=== PATIENT | female | born 1980 | race Caucasian/White ===

== ENCOUNTER 2016-12-06 15:08 | Emergency (ER) | payer BC, MEDICAID ==
[~2016-12-06 15:08] MED LIST: Amoxicillin/Clavulanate K 875-125 MG Tab ONE
--- NOTE | 2016-12-06 17:57 | EDM.PDOC ---
ED HPI GENERAL MEDICAL PROBLEM - General Chief Complaint: General Stated Complaint: cat bite Time Seen by Provider: 12/06/16 15:10 Source of Information: Reports: Patient History Limitations: Reports: No Limitations - History of Present Illness INITIAL COMMENTS - FREE TEXT/NARRATIVE: This is a 36yo F who was bitten by her cat and has noticed inflammation at the site of the left thumb base with swelling. Denies fever or chills. Duration: Day(s): Location: Reports: Upper Extremity, Left Severity: Mild Improves with: Reports: None Worsens with: Reports: None ED ROS GENERAL - Review of Systems Review Of Systems: ROS reveals no pertinent complaints other than HPI. ED EXAM, GENERAL - Physical Exam Exam: See Below Exam Limited By: No Limitations General Appearance: Alert, WD/WN, No Apparent Distress Ears: Normal External Exam Respiratory/Chest: No Respiratory Distress Cardiovascular: Normal Peripheral Pulses Extremities: Redness Neurological: Alert, Oriented Psychiatric: Normal Affect, Normal Mood Skin Exam: Increased Warmth Course - Vital Signs Last Recorded V/S: Last Vital Signs Temp 36.8 C 12/06/16 16:40 Pulse Resp BP Pulse Ox Departure - Departure Time of Disposition: 15:20 Disposition: Home, Self-Care 01 Condition: Good Clinical Impression: Cat bite of hand Qualifiers: Encounter type: initial encounter Laterality: left Qualified Code(s): S61.452A - Open bite of left hand, initial encounter; W55.01XA - Bitten by cat, initial encounter; W55.01XA - Bitten by cat, initial encounter - Discharge Information Instructions: Amoxicillin; Clavulanic Acid tablets, Animal Bite Forms: ED Department Discharge Additional Instructions: Take ibproufen 4 tablets (800mg) every 8 hours as needed for pain. Take tylenol 2 tablets (650mg) every 4 hours as needed for pain. Return to clinic in 2 days if symptoms have not begun to resolve. Elevate hand and rest for 12 hours. Avoid lifting with left hand. Apply ice to affected area for 10 to 15 minutes four times a day as needed for pain.
== END 2016-12-06 15:20 | disposition home or self-care (01) ==
LOC: LB.ED 15:08
DX: S61.452A Open bite of left hand, initial encounter (principal); W55.01XA Bitten by cat, initial encounter
CPT/HCPCS: 99283; A9270

== ENCOUNTER 2017-04-08 08:07 | Emergency (ER) | payer BC, MEDICAID | END 2017-04-08 08:15 | disposition other institution (70) | LOC: LB.ED 08:07 | DX: Z13.9 Encounter for screening, unspecified (principal) ==